=== PATIENT | female | born 1990 | race African-American/Black ===

== ENCOUNTER 2019-07-15 07:52 | Inpatient (IN) | payer BC, MEDICAID ==
[~2019-07-15] VITALS: Ht 162.6 cm; Wt 61.2 kg
[2019-07-15] VITALS (8 sets, daily range): BP systolic 92–119; BP diastolic 42–59
[~2019-07-15 07:52] MED LIST: FERR325T28 PO; LITH300C4 PO; QUET100T PO
[2019-07-15] MEDS ORDERED: GABA400C PO (08:01)
[2019-07-15] MEDS ORDERED: QUET300T2 PO (08:01)
[2019-07-15] MEDS ORDERED: BUPR-96 PO (08:01)
--- NOTE | 2019-07-15 08:13 | NUR ---
PT IS IN ROOM #2A. DR MILLS EVALUATED THE PT.
[2019-07-15] MEDS ORDERED: ONDANSETRON 4 MG/2 ML VIAL ONE (08:28)
[2019-07-15] MEDS ORDERED: ACETAMINOPHEN ES 500 MG TABLET ONE (08:28)
[2019-07-15] MEDS ORDERED: ACETAMINOPHEN ES 500 MG TABLET PO ONE (08:30)
[2019-07-15] MEDS ORDERED: ONDANSETRON 4 MG/2 ML VIAL IV ONE (08:30)
[2019-07-15] MEDS ORDERED: IV NORMAL SALINE 1000 ML BAG IV ONE (08:30)
[2019-07-15 09:00] LABS: CARBON DIOXIDE 21 mmol/L (21-32); CHLORIDE 106 mmol/L (98-107); GLUCOSE 74 mg/dL (74-106); POTASSIUM 4.1 mmol/L (3.5-5.1)
[2019-07-15 09:01] LABS: CREATININE 0.5 mg/dL (0.6-1.3); UREA NITROGEN, BLOOD 7 mg/dL (7-18)
[2019-07-15 09:07] LABS: MEAN CORPUSCULAR HEMOGLOBIN 16.1 uug (24.7-32.8); MEAN CORPUSCULAR HGB CONC 29 g/dL (32.3-35.6); PLATELET COUNT (AUTO) 693 K/uL (179-408); RED BLOOD CELL COUNT(AUTO) 3.77 MIL/uL (3.63-4.92); WHITE BLOOD COUNT (AUTO) 5.7 K/uL (3.8-11.8)
[2019-07-15 09:08] LABS: BASOPHILS # (AUTO) 0.2 K/uL (0.0-8.0); BASOPHILS % (AUTO) 3.3 % (0.0-2.0); EOSINOPHILS # (AUTO) 0.2 K/uL (0.0-0.7); LYMPHOCYTES # (AUTO) 0.5 K/uL (20.0-40.0); LYMPHOCYTES % (AUTO) 9.5 % (20.5-51.5); MONOCYTES # (AUTO) 0.7 K/uL (2.0-10.0); NEUTROPHILS # (AUTO) 4.1 K/uL (1.8-8.9); NEUTROPHILS % (AUTO) 72.2 % (38.5-71.5)
[2019-07-15 09:09] LABS: HEMATOCRIT 21.1 % (31.2-41.9); HEMOGLOBIN 6.1 g/dL (10.9-14.3)
[2019-07-15 09:17] LABS: BILIRUBIN,TOTAL 0.5 mg/dL (0.2-1.0)
[2019-07-15 09:18] LABS: ALANINE AMINOTRANSFERASE 26 U/L (14-59); ALKALINE PHOSPHATASE 63 U/L (50-136); ASPARTATE AMINOTRANSFERASE 18 U/L (15-37); BILIRUBIN,DIRECT 0.1 mg/dL (0.0-0.2); TOTAL PROTEIN, SERUM 7.8 g/dL (6.4-8.2)
[2019-07-15 09:30] LABS: NEUTROPHILS % (MANUAL) 73 % (42-75)
[2019-07-15] MEDS ORDERED: PANTOPRAZOLE SODIUM 40 MG VIAL IV ONE (09:30)
[2019-07-15 09:31] LABS: BASOPHILS % (MANUAL) 1 % (0-2); EOSINOPHILS % (MANUAL) 3 % (0-8); LYMPHOCYTES % (MANUAL) 11 % (20-40); MONOCYTES % (MANUAL) 12 % (2-10)
[2019-07-15] MEDS ORDERED: PANTOPRAZOLE SODIUM 40 MG VIAL ONE (09:40)
--- NOTE | 2019-07-15 11:45 | NUR ---
TRANSFUSION OF 1st [facility]'s UNIT IS GOING TO BE CONTINUED ON TELEMETRY FLOOR.
--- NOTE | 2019-07-15 11:47 | NUR ---
REPORT GIVEN TO CONCERT SINGER. PT WAS TRANSFERED TO ROOM #319.
--- NOTE | 2019-07-15 11:50 | NUR ---
ADMITTED FROM HOME A 29 YO FEMALE WITH ADM DX OF ANEMIA, ALERT AND ORIENTED X3, DENIES PAIN/CHEST PAIN. HGB 6.1 WITH BLOOD TRANSFUSION ON GOING FROM ER. NO REACTION NOTED. DR HERRERA NOTIFIED WITH ORDERS. SR ON MONITOR. ROUTINE ADMISSION ASSESSMENT INITIATED
--- NOTE | 2019-07-15 13:15 | NUR ---
BLOOD TRANSFUSION COMPLETED, NO REACTION NOTED
[2019-07-15 14:08] LABS: HEMATOCRIT 24.6 % (37-47); MEAN CORPUSCULAR HGB CONC 30 g/dL (32.0-37.0); PLATELET COUNT (AUTO) 668 K/UL (150-450); WHITE BLOOD COUNT (AUTO) 7.5 K/UL (4.0-11.2)
[2019-07-15 14:11] LABS: HEMOGLOBIN 7.4 G/DL (12.0-16.0)
[2019-07-15 15:57] LABS: BAND % (MANUAL) 1 % (0-10); NEUTROPHILS % (MANUAL) 43 % (42-75)
[2019-07-15 15:58] LABS: LYMPHOCYTES % (MANUAL) 54 % (20-40); MONOCYTES % (MANUAL) 2 % (2-10)
--- NOTE | 2019-07-15 17:32 | NUR ---
DR HERRERA NOTIFIED NEED FOR ADMISSION ORDERS, AWAITING CALL BACK
--- NOTE | 2019-07-15 18:25 | NUR ---
blood transfusion started, closely monitored
--- NOTE | 2019-07-15 18:38 | NUR ---
no reaction from blood transfusion noted, continue treatment
[2019-07-15] MEDS ORDERED: HYDROCODONE/APAP 5-325MG TABLET PO PRN (19:00)
[2019-07-15] MEDS ORDERED: ONDANSETRON 4 MG/2 ML VIAL IV PRN (19:00)
[2019-07-15] MEDS ORDERED: ACETAMINOPHEN 325 MG TABLET PO PRN (19:00)
[2019-07-15] MEDS ORDERED: GABAPENTIN 400 MG CAPSULE PO SCH (20:00)
[2019-07-15 20:14] LABS: IRON, SERUM 70 ug/dL (50-175)
[2019-07-15] MEDS ORDERED: Medication Not On Formulary EA (Quetiapine Fumarate (Seroquel) 300 MG) PO SCH (21:00)
--- NOTE | 2019-07-15 22:15 | NUR ---
Transfusion is complete. no adverse reactions noted. Vitals are stable and WNL.
[2019-07-15] MEDS ORDERED: QUETIAPINE FUMARATE 200 MG TABLET PO ONE (22:30)
[2019-07-15] MEDS ORDERED: QUETIAPINE FUMARATE 200 MG TABLET PO SCH (22:30)
[2019-07-16 00:30] VITALS: BP 93/48
[2019-07-16 05:06] VITALS: BP 98/56
[2019-07-16] MEDS ORDERED: PANTOPRAZOLE SODIUM 40 MG TABLET.DR PO SCH (07:00)
[2019-07-16 07:57] LABS: HEMATOCRIT 28.4 % (37-47); HEMOGLOBIN 8.7 G/DL (12.0-16.0); WHITE BLOOD COUNT (AUTO) 7.2 K/UL (4.0-11.2)
[2019-07-16 07:58] LABS: MEAN CORPUSCULAR HEMOGLOBIN 19.7 UUG (27.0-31.0); MEAN CORPUSCULAR HGB CONC 31 g/dL (32.0-37.0); MEAN CORPUSCULAR VOLUME 64.5 FL (81.0-99.0); NEUTROPHILS % (AUTO) 74.6 % (38.5-71.5); PLATELET COUNT (AUTO) 592 K/UL (150-450)
[2019-07-16 07:59] LABS: BASOPHILS # (AUTO) 0.2 K/uL (0.0-8.0); BASOPHILS % (AUTO) 2.2 % (0.0-2.0); EOSINOPHILS # (AUTO) 0.3 K/uL (0.0-0.7); EOSINOPHILS % (AUTO) 3.8 % (0.0-7.0); LYMPHOCYTES # (AUTO) 0.7 K/UL (0.8-4.8); LYMPHOCYTES % (AUTO) 9.5 % (20.5-51.5); MONOCYTES # (AUTO) 0.7 K/UL (0.1-1.30); MONOCYTES % (AUTO) 9.9 % (0.0-11.0); NEUTROPHILS # (AUTO) 5.4 K/UL (1.8-8.9)
[2019-07-16] MEDS ORDERED: GABAPENTIN 400 MG CAPSULE PO SCH (09:00)
[2019-07-16] MEDS ORDERED: buPROPion XL 150 MG TAB.SR.24H PO SCH (09:00)
[2019-07-16 09:23] LABS: EOSINOPHILS % (MANUAL) 2 % (0-8); LYMPHOCYTES % (MANUAL) 22 % (20-40); MONOCYTES % (MANUAL) 9 % (2-10); NEUTROPHILS % (MANUAL) 67 % (42-75)
--- NOTE | 2019-07-16 11:50 | NUR ---
patient discharge to home via private car, discharge instruction given as ordered and verbalized understanding, able to make needs known, no c/o pain at this time, belongings accounted for and signed, IV and Id band removed . Questions and concerns addressed.
[2019-07-16] MEDS ORDERED: QUETIAPINE FUMARATE 200 MG TABLET PO SCH (21:00)
== END 2019-07-16 11:42 | disposition home or self-care (01) | DRG 812 ==
LOC: ER 07:52 → TELE3 11:04 → MEDSURG3 07-16 10:00
PROVIDERS: ADMIT Internal Medicine; ATTEND Internal Medicine
PROC: 30233N1 Transfusion of Nonautologous Red Blood Cells into Peripheral Vein, Percutaneous Approach (ICD-10-PCS; principal; 2019-07-15)
DX: D50.9 Iron deficiency anemia, unspecified (principal); F31.9 Bipolar disorder, unspecified; J45.909 Unspecified asthma, uncomplicated; Z82.49 Family history of ischemic heart disease and other diseases of the circulatory system; Z79.899 Other long term (current) drug therapy; R79.89 Other specified abnormal findings of blood chemistry; R07.81 Pleurodynia
CPT/HCPCS: 36415; 70030-TC; 71045; 83550; 85025; 85730; 86850; 86900; 86901; 86920; 93005; A4663; A9150; C9113; G0378; J2405; J7030; J7050; P9016-BL; P9021

== ENCOUNTER 2021-01-30 16:55 | Emergency (ER) | payer BC, OTHER ==
[~2021-01-30] VITALS: Ht 162.6 cm; Wt 60.8 kg
[~2021-01-30 16:55] MED LIST changes: +BUPR-96 PO; -FERR325T28 PO; +GABA400C PO; -LITH300C4 PO; -QUET100T PO; +QUET300T2 PO
--- NOTE | 2021-01-30 17:05 | NUR ---
Pt ambulated to room 4a with steady gait, pt placed on nurse monitoring and cont pulse ox, EKG done. Noted pt having EKG stickers already on when I did her EKG. Call light placed in reach, pt appears comfortable and watching TV upon me leaving her room.
[2021-01-30] MEDS ORDERED: IV NORMAL SALINE 1000 ML BAG IV ONE (17:15)
[2021-01-30 17:37] LABS: CREATININE 0.7 mg/dL (0.6-1.3); POTASSIUM 3.9 mmol/L (3.5-5.1)
[2021-01-30 17:39] LABS: BASOPHILS % (AUTO) 0.7 % (0.0-2.0); EOSINOPHILS # (AUTO) 0.1 K/uL (0.0-0.7); EOSINOPHILS % (AUTO) 1.1 % (0.0-7.0); HEMATOCRIT 25.6 % (31.2-41.9); HEMOGLOBIN 8.1 g/dL (10.9-14.3); LYMPHOCYTES # (AUTO) 2.3 K/uL (20.0-40.0); LYMPHOCYTES % (AUTO) 41.1 % (20.5-51.5); MEAN CORPUSCULAR HEMOGLOBIN 22.1 uug (24.7-32.8); MEAN CORPUSCULAR HGB CONC 32 g/dL (32.3-35.6); MEAN CORPUSCULAR VOLUME 70.1 fL (75.5-95.3); MONOCYTES # (AUTO) 0.4 K/uL (2.0-10.0); MONOCYTES % (AUTO) 6.9 % (0.0-11.0); NEUTROPHILS # (AUTO) 2.7 K/uL (1.8-8.9); NEUTROPHILS % (AUTO) 50.2 % (38.5-71.5); PLATELET COUNT (AUTO) 622 K/uL (179-408); RED BLOOD CELL COUNT(AUTO) 3.65 MIL/uL (3.63-4.92); WHITE BLOOD COUNT (AUTO) 5.5 K/uL (3.8-11.8)
[2021-01-30 17:44] LABS: BILIRUBIN,DIRECT 0.2 mg/dL (0.0-0.2); BILIRUBIN,TOTAL 0.8 mg/dL (0.2-1.0); TOTAL PROTEIN, SERUM 7.2 g/dL (6.4-8.2)
[2021-01-30 18:36] LABS: EOSINOPHILS % (MANUAL) 1 % (0-8); LYMPHOCYTES % (MANUAL) 40 % (20-40); MONOCYTES % (MANUAL) 5 % (2-10); NEUTROPHILS % (MANUAL) 54 % (42-75)
--- NOTE | 2021-01-30 18:40 | NUR ---
Dr Hutson at the bedside for MSE.
--- NOTE | 2021-01-30 19:00 | NUR ---
Received report from EZEQUIEL Betancourt.
[2021-01-30] MEDS ORDERED: ACETAMINOPHEN ES 500 MG TABLET ONE (21:41)
[2021-01-30] MEDS ORDERED: ACETAMINOPHEN ES 500 MG TABLET PO ONE (21:45)
--- NOTE | 2021-01-30 21:55 | NUR ---
Pt well tolerated blood transfusion.
--- NOTE | 2021-01-30 23:48 | NUR ---
Patient discharged to home in stable condition. A/O x4, no SOB or labored breathing. Afebrile. No c/o chest pain/pressure. No c/o n/v or dizziness. All IV sites removed. Written and verbal after care instructions given. Patient verbalizes understanding of instructions. Stressed follow up or return to ER for worsening s/s. Steady gait.
[2021-01-30 23:53] VITALS: BP 114/80
== END 2021-01-30 23:45 | disposition home or self-care (01) ==
LOC: ER 16:57
DX: R55 Syncope and collapse (principal); D50.9 Iron deficiency anemia, unspecified; R53.83 Other fatigue; J45.909 Unspecified asthma, uncomplicated; Z79.899 Other long term (current) drug therapy; F17.210 Nicotine dependence, cigarettes, uncomplicated; Z82.49 Family history of ischemic heart disease and other diseases of the circulatory system; R94.31 Abnormal electrocardiogram [ECG] [EKG]
CPT/HCPCS: 36415; 80048; 80076; 84484; 84702; 85007; 85025; 86850; 86900; 86901; 86920; 93005; 96360; 99285; 99406; P9016; 70030-TC; A4663; A9150; J7030; P9021